=== PATIENT | male | born 1990 | race Caucasian/White ===

== ENCOUNTER 2023-10-03 17:45 | Inpatient (IN) ==
[2023-10-03 18:50] LABS: ABS Basophils 0.1 10^3/uL (0.0-0.1); ABS Eosinophils 0.2 10^3/uL (0.0-0.5); ABS Lymphocytes 2.3 10^3/uL (1.0-4.8); ABS Monocytes 0.6 10^3/uL (0.0-1.1); ABS Neutrophils 6.1 10^3/uL (1.5-7.6); ABS Nucleated RBC 0.01 10^3/ul; Eosinophil % 2.2 %; Hematocrit 49.5 % (38-53); Lymphocyte % 24.6 %; Mean Corpuscular Hemoglobin 31.1 pg (27-33); Mean Corpuscular Hgb Conc 34.3 g/dL (31-36); Mean Corpuscular Volume 90.7 fL (80-97); Mean Platelet Volume 8.8 fL (7.5-11.2); Nucleated Red Blood Cells % 0.1 %/100WBC (0.0-0.8); Platelet Count 210 10^3/uL (150-450); Red Blood Count 5.46 10^6/uL (4.06-5.63); White Blood Count 9.3 10^3/uL (3.6-10.2)
[2023-10-03 19:02] LABS: Urine Appearance Clear; Urine Bilirubin Negative (Negative); Urine Blood Negative (Negative); Urine Color Light-Yellow; Urine Glucose Negative (Negative); Urine Ketones Negative (Negative); Urine Nitrite Negative (Negative); Urine Protein Negative (Negative); Urine Urobilinogen Negative (Negative)
[2023-10-03 19:14] LABS: ALT 56 U/L (7-52); AST 26 U/L (13-39); Albumin 5.2 g/dL (3.2-5.2); Albumin/Globulin Ratio 1.9 (1-3); Alkaline Phosphatase 51 U/L (35-149); Anion Gap 6 mmol/L (2-16); Blood Urea Nitrogen 15 mg/dL (6-24); CO2 Carbon Dioxide 32 mmol/L (22-32); Calcium 9.9 mg/dL (8.6-10.3); Chloride 102 mmol/L (101-111); Creatinine, Serum 1.35 mg/dL (0.67-1.17); Globulin 2.7 g/dL (2-4); Glucose 92 mg/dL (70-100); Potassium 4.4 mmol/L (3.5-5.0); Sodium 140 mmol/L (135-145); Total Bilirubin 0.5 mg/dL (0.2-1.0); Total Protein 7.9 g/dL (6.4-8.9)
[2023-10-03 19:20] LABS: Urine Benzodiazepine Screen None Detected (None Detect); Urine Cannabinoids Screen None Detected (None Detect); Urine Opiates Screen None Detected (None Detect)
[2023-10-03 19:56] LABS: Alcohol, S < 13 mg/dL (<13)
[2023-10-04 08:39] LABS: HDL Cholesterol 42.2 mg/dL
[2023-10-04] MEDS ORDERED: COVID VAC 23-24(12+)(Moderna) SYR 0.5 ML IM ONE (09:00)
[2023-10-04] MEDS: Vitamin THERAPEUTIC TAB PO SCH (10:06)
[2023-10-05 08:05] LABS: Testosterone Total 173.91 ng/dL (240-950)
[2023-10-05 15:13] LABS: Creatinine, Serum 1.24 mg/dL (0.67-1.17); eGFR CKD-EPI 79.7 (>60)
[2023-10-07] MEDS: Al Hydrox/Mg Hydrox/Simet LIQ 30 ML UDC PO PRN (11:44)
[2023-10-09] MEDS: Triamcinolone 0.025% OINT 15 GM TUBE TOPICAL SCH (22:00)
[2023-10-10 12:03] VITALS: BP 119/76
== END 2023-10-10 16:05 | disposition home or self-care (01) | DRG 885 ==
LOC: ED 17:45 → EDHOLD 20:29 → BSU 22:11
PROVIDERS: ADMIT Psychiatry & Neurology Psychiatry; ATTEND Psychiatry & Neurology Psychiatry